=== PATIENT | male | born 1955 | race Caucasian/White ===

== ENCOUNTER 2019-05-19 09:31 | Emergency (ER) | payer BC ==
[2019-05-19 09:36] VITALS: BP 149/92; PULSE 85; RESP 18; TEMP 99.7
[2019-05-19] MEDS ORDERED: DIPH,PERTUS(ACELL)TETVAC-LF 0.5 ML VIAL IM ONE (09:51)
--- NOTE | 2019-05-19 09:54 | ED ---
Lower Extremity Injury HPI - General Chief Complaint: Extremity Injury, Lower Stated Complaint: Toe injury Time Seen by Provider: 05/19/19 09:39 Source: patient, RN notes reviewed Mode of arrival: ambulatory Limitations: no limitations - History of Present Illness Initial Comments: This a 64-year-old male presents emergency Department with chief complaint of right foot first digit toe injury. Patient states that he was helping move a welding take states that it fell onto his toe. Patient's nail popped up states that there was a small cut. Patient states he is not in much pain at this time his last tetanus was 6-7 years ago. Patient is not a diabetic. Patient states that the bleeding seemed to continue slightly throughout the night. Patient denies any difficulty and bleeding no pain proximal to the first digit. - Related Data Home Medications Medication Instructions Recorded Confirmed Ibuprofen [Motrin Ib] 400 mg PO Q6H PRN 05/19/19 05/19/19 Previous Rx's Medication Instructions Recorded Cephalexin [Keflex] 500 mg PO Q6HR #40 cap 05/19/19 Allergies Allergy/AdvReac Type Severity Reaction Status Date / Time No Known Allergies Allergy Verified 05/19/19 09:54 Review of Systems ROS Statement: Those systems with pertinent positive or pertinent negative responses have been documented in the HPI. ROS Other: All systems not noted in ROS Statement are negative. Past Medical History Past Medical History: No Reported History History of Any Multi-Drug Resistant Organisms: None Reported Past Surgical History: Hernia Repair Past Psychological History: No Psychological Hx Reported Smoking Status: Former smoker Past Alcohol Use History: Occasional Past Drug Use History: None Reported General Exam Limitations: no limitations General appearance: alert, in no apparent distress Head exam: Present: atraumatic, normocephalic, normal inspection Eye exam: Present: normal appearance, PERRL, EOMI. Absent: scleral icterus, conjunctival injection, periorbital swelling ENT exam: Present: normal exam, normal oropharynx, mucous membranes moist Neck exam: Present: normal inspection, full ROM. Absent: tenderness, meningismus, lymphadenopathy Respiratory exam: Present: normal lung sounds bilaterally. Absent: respiratory distress, wheezes, rales, rhonchi, stridor Cardiovascular Exam: Present: regular rate, normal rhythm, normal heart sounds. Absent: systolic murmur, diastolic murmur, rubs, gallop, clicks Extremities exam: Present: other (Right foot first digit there is partial nail avulsion, neurovascular intact there is a small laceration on the lateral aspect of the toe there is no active bleeding) Course Vital Signs 05/19/19 09:34 Temperature 99.7 F H Pulse Rate 85 Respiratory 18 Rate Blood Pressure 149/92 O2 Sat by Pulse 98 Oximetry Medical Decision Making - Medical Decision Making X-ray shows evidence of the tuft fracture of his right foot first digit. Patient does have a laceration evident. Patient has no active bleeding. Patient given first dose of antibiotics, tetanus is updated. Patient stole be wrapped, patient will follow-up with health care facilities inspector or orthopedic doctor. Return parameters were discussed. Disposition Clinical Impression: Open fracture of distal phalanx of toe of right foot Disposition: HOME SELF-CARE Condition: Stable Instructions (If sedation given, give patient instructions): Toe Fracture (ED) Additional Instructions: Please follow up with podiatry or orthopedic doctor.Please return to the Emergency Department if symptoms worsen or any other concerns. Prescriptions: Cephalexin [Keflex] 500 mg PO Q6HR #40 cap Is patient prescribed a controlled substance at d/c from ED?: No When asked, does pt state using other controlled substances?: No Referrals: Stanford Soni MD [Primary Care Provider] - 1-2 days Matt Christina DPM [STAFF PHYSICIAN] - 1-2 days Sam Archibald MD [Medical Doctor] - 1-2 days Time of Disposition: 10:39
--- NOTE | 2019-05-19 10:07 | XR ---
EXAMINATION TYPE: XR toes RT , 3 VIEWS DATE OF EXAM ORDERED: 05/19/2019 HISTORY: trauma, 1st digit. COMPARISON: None.. FINDINGS: There is a minimally displaced, comminuted fracture of the tuft of the distal phalanx of t he right great toe. IMPRESSION: MINIMALLY DISPLACED TUFT FRACTURE RIGHT GREAT TOE. CODE A: INITIAL ENCOUNTER FOR CLOSED FRACTURE.
[2019-05-19] MEDS ORDERED: CEPHALEXIN 500 MG CAP PO STA (10:37)
== END 2019-05-19 11:01 | disposition home or self-care (01) ==
LOC: EC 09:31
DX: S92.421B Displaced fracture of distal phalanx of right great toe, initial encounter for open fracture (principal); Z23 Encounter for immunization; Z87.891 Personal history of nicotine dependence; W20.8XXA Other cause of strike by thrown, projected or falling object, initial encounter
CPT/HCPCS: 90471; 90715; 99283